=== PATIENT | female | born 1970 | race Caucasian/White ===

== ENCOUNTER → 2017-03-04 | Outpatient (CLI) | payer BC | LOC: BRMIMAGING 07:49 | PROVIDERS: ATTEND Obstetrics & Gynecology | DX: Z12.31 Encounter for screening mammogram for malignant neoplasm of breast (principal); Z80.3 Family history of malignant neoplasm of breast | CPT/HCPCS: G0202 ==

== ENCOUNTER → 2018-03-11 | Outpatient (CLI) | payer BC | LOC: BRMIMAGING 07:40 | PROVIDERS: ATTEND Obstetrics & Gynecology | DX: Z12.31 Encounter for screening mammogram for malignant neoplasm of breast (principal); Z80.3 Family history of malignant neoplasm of breast ==